=== PATIENT | female | born 1985 | race Caucasian/White ===

== ENCOUNTER 2017-03-23 11:00 | Inpatient (IN) | payer OTHER ==
--- NOTE | ~2017-03-23 | HP ---
Unit #: [id number] #: [id number] Patient: ROSY RAMIREZ [id number] [facility] [address] [place] [address] [id number] MR#: [id number] NAME: ROSY RAMIREZ ROOM: 73 Age: 31 Sex: F Admission Date: 03/23/2017 : 1985 Attending Physician: Rikki Harrell M.D. Admitting Physician: Rikki Harrell M.D. Primary Care Physician: Generic Doctor Not In System HISTORY AND PHYSICAL HISTORY OF PRESENT ILLNESS Rosy is a 31 year old admitted to [facility] because of her polysubstance abuse which includes methamphetamine and heroin. She is belligerent and a poor historian so her history is taken from her chart. PAST MEDICAL HISTORY Long history of polysubstance abuse to include meth and heroin PAST SURGICAL HISTORY Nothing reported ALLERGIES Phenergan (restless legs) SOCIAL HISTORY Smokes one pack per day. Denies alcohol. Admits to a long history of poly illicit substance abuse to include amphetamines and heroin. She does have a history of IV heroin but denies anything currently. FAMILY HISTORY Medically noncontributory. REVIEW OF SYSTEMS She does not answer all questions appropriately. There are no reports of nausea, vomiting or diarrhea. She has had no cough or increased temperature. CURRENT MEDICATIONS 1. Milk of Magnesia p.r.n. 2. Maalox p.r.n. 3. Tylenol p.r.n. PHYSICAL EXAMINATION GENERAL: Alert, well-nourished, in no apparent distress. VITAL SIGNS: Blood pressure 120/86, heart rate 72, respirations 16, temperature 98.6. WEIGHT: 170 pounds. HEIGHT: 5'4". SKIN: Warm and dry without rash or lesion. HEENT: Normocephalic. TMs not viewed. Oral and nasal passages clear. Conjunctivae clear. Pupils equal, round and reactive to light and accommodation. Extraocular movements intact. Unit #: [id number] #: [id number] Patient: ROSY RAMIREZ NECK: Supple without lymphadenopathy or thyromegaly. HEART: Regular rate and rhythm without murmur. LUNGS: Clear. ABDOMEN: Soft, nontender. : Not done. EXTREMITIES: No evidence of cyanosis, clubbing or edema. Moves all extremities without focal deficit. NEUROLOGICAL: Grossly within normal limits. Cranial Nerves: II: Visual pardo are intact. III, IV AND : Extraocular movements are intact. Pupils are equal, round and reactive to light. V: Facial sensation is grossly normal. VII: Facial movements and expression are normal. VIII: Auditory acuity grossly intact. IX, X: Uvula is midline. Phonation is normal. XI: Patient shrugs shoulders and turns head normally. XII: Tongue protrudes in the midline. Sensory and Motor Function: Sensory and motor sensation is grossly normal. Motor: moves all extremities well. Coordination: Gait is normal. Deep Tendon Reflexes: Intact. IMPRESSION Psychiatric admission RECOMMENDATIONS PSYCHIATRIC: Per psychiatrist. MEDICAL: I see no contraindications to participating in facility's activities. MEDICAL PROGNOSIS Good. MEDICAL CONDITION Stable. Dictated by... Heather Osborne P.A.-C. for Denita Stevens/luis TD: 03/24/2017 04:46 JOB #: [id number] HISTORY AND PHYSICAL Page 1 of 1 X Heather Osborne HISTORY AND PHYSICAL
--- NOTE | ~2017-03-23 | PA ---
Unit #: [id number] #: [id number] Patient: ESTEPHANIA RAMIREZ [id number] [facility] [address] [place] [address] [id number] I MR#: [id number] NAME: ESTEPHANIA RAMIREZ ROOM: P173 Age: 31 Sex: F Admission Date: 03/23/2017 : 1985 Date of Assessment: 03/24/2017 Attending Physician: Rikki Harrell M.D. Admitting Physician: Rikki Harrell M.D. Primary Care Physician: Generic Doctor Not In System PSYCHIATRIC ASSESSMENT IDENTIFYING INFORMATION The patient is a 31-year-old female admitted with a history of suicidal ideation and polysubstance dependence. INFORMANT(S) Chart, patient could not be aroused for interview. CHIEF COMPLAINT None given. HISTORY OF PRESENT ILLNESS The patient is a 31-year-old white female admitted with a history of positive suicidal ideation. The patient reported that "if I leave here I'm going to find a way to kill myself." She reports a history of abuse of methamphetamine, Suboxone, and Klonopin. She is presently homeless and has been staying at the [facility]. The patient reports she has lost custody of her children and that she has lost several loved ones to substance abuse. She has been arrested in the past on trafficking charges per her report. Attempted interview today is not possible as the patient does not arouse for attempted interview. PAST PSYCHIATRIC HISTORY There is no reported previous chemical dependence treatment. FAMILY HISTORY The patient's father and brother both of drug related causes. SOCIAL HISTORY The patient is currently homeless. She reports substance use as noted previously. She is the mother of one child whose custody has been taken from the patient. She is a smoker. MEDICAL HISTORY Noncontributory. MEDICATION HISTORY None. ALLERGIES Phenergan. MENTAL STATUS EXAM At this time, reveals the patient to be a soundly sleeping Unit #: [id number] #: [id number] Patient: ESTEPHANIA RAMIREZ female appearing her stated age. Attempts to arouse the patient are sanders unsuccessful and further interview is not possible. ASSETS AND LIABILITIES Patient's assets to be assessed. Liabilities, ongoing substance use. ADMITTING DIAGNOSES 1. Dysthymic disorder. 2. Methamphetamine use disorder. 3. Sedative/hypnotic use disorder. 4. Opioid use disorder. PSYCHIATRIC PLAN/TREATMENT GOALS The patient remains hospitalized for safety and stabilization. Routine detoxification protocol for sedative/hypnotics and opiates has been initiated and suicide precautions are in place. Patient has been placed on 72 hold after she had threatened to leave the hospital yesterday. ESTIMATED LENGTH OF STAY Five to seven days with follow up to take place through the auspices of community mental health resources. Dictated by... Rikki Harrell M.D. MICHAEL/stacey TD: 03/24/2017 15:07 JOB #: [id number] PSYCHIATRIC ASSESSMENT Page 1 of 1 X Rikki Harrell MD X PSYCHIATRIC ASSESSMENT
--- NOTE | ~2017-03-23 | PN ---
Unit #: [id number] #: [id number] Patient: ESTEPHANIA RAMIREZ [id number] [facility] [address] [place] [address] [id number] I MR#: [id number] NAME: ESTEPHANIA RAMIREZ ROOM: 73 Age: 31 Sex: F Admission Date: 03/23/2017 : 1985 Attending Physician: Rikki Harrell M.D. Admitting Physician: Rikki Harrell M.D. Primary Care Physician: Jose Doctor Not In System [facility] PROGRESS NOTES DATE 03/25/2017 DISCUSSION The patient continues to complain of severe symptoms of opioid withdrawal and appears to be in significant physical discomfort. I have encouraged her to avail herself of prescribed p.r.n.s and increase her participation once she is able to do so. Dictated by... Rikki Harrell M.D. CB/ilan TD: 03/25/2017 14:40 JOB #: [id number] [facility] PROGRESS NOTES Page 1 of 1 X Rikki Harrell MD X PROGRESS NOTE
--- NOTE | ~2017-03-23 | DS ---
Unit #: [id number] #: [id number] Patient: ESTEPHANIA RAMIREZ [id number] [facility] [address] [place] [address] [id number] I MR#: [id number] NAME: ESTEPHANIA RAMIREZ ROOM: P173 Age: 31 Sex: F Admission Date: 03/23/2017 : 1985 Discharge Date: 03/26/2017 Attending Physician: Rikki Harrell M.D. Primary Care Physician: Generic Doctor Not In System DISCHARGE SUMMARY REASON FOR ADMISSION The patient is a 31-year-old white female admitted to the [facility] unit with a history of opioid and methamphetamine abuse, as well as suicidal ideation. HOSPITAL COURSE The patient is admitted to the [facility] unit and placed in a routine detoxification protocol for opioids. Her participation in the therapeutic milieu left much to be desired and the patient angrily demanded discharge on 03/25/2017. She was placed on a 72 hour hold, as she had made suicidal ideations at the time of admission. By 03/26/2017 the patient was contrite over her previous behavior and requested discharged and was so ordered. FINAL DIAGNOSES 1. Methamphetamine use disorder. 2. Opiate use disorder. DISPOSITION ON DISCHARGE No psychotropic or other medications ordered at time of discharge. FOLLOWUP Followup will take place through the auspices of community mental health and chemical dependence treatment resources. PROGNOSIS The patient's prognosis is considered fair. Dictated by... Rikki Harrell M.D. MICHAEL/aren TD: 03/27/2017 10:10 JOB #: [id number] Unit #: [id number] #: [id number] Patient: ESTEPHANIA RAMIREZ DISCHARGE SUMMARY Page 1 of 1 X Rikki Harrell MD X DISCHARGE SUMMARY
[2017-03-24 09:57] LABS: BASOPHIL# 0.1 X10e3 (0-0.3); BASOPHIL% 0.8 % (0-2.5); EOSINOPHIL# 0.2 X10e3 (0-0.7); EOSINOPHIL% 2.5 % (0.0-7.0); HEMATOCRIT 41.8 % (35.0-45.0); HEMOGLOBIN 13.9 gm/dL (12.0-16.0); LYMPHOCYTE# 2.5 X10e3 (1.0-3.5); LYMPHOCYTE% 39.4 % (17.0-45.0); MEAN CELL VOLUME 93.1 FL (83-96); MEAN CORPUSCULAR HGB CONC 33.3 g/dL (30-36); MEAN PLATELET VOLUME 8.8 FL (6.5-11.5); MONOCYTE# 0.4 X10e3 (0-1.0); NEUTROPHIL# 3.2 X10e3 (1.5-7.1); NEUTROPHIL% 50.3 % (40-75); PLATELET COUNT 237 X10e3 (140-420); RED BLOOD COUNT 4.49 X10e (3.90-5.30); RED CELL DISTRIBUTION WIDTH 13.6 % (11.0-15.5); WHITE BLOOD COUNT 6.3 X10e3 (4.0-10.5)
[2017-03-24 09:59] LABS: DIFF IND NO
[2017-03-24 11:34] LABS: ALBUMIN SERUM 3.6 g/dL (3.5-5.0); BILIRUBIN,TOTAL 0.9 mg/dL (0.2-2.0); BUN/CREATININE RATIO 22.5; CREATININE SERUM 0.4 mg/dL (0.6-1.4); GLOM FILT RATE Estimated 139.8 mL/min (>60); POTASSIUM 4.5 mmol/L (3.5-5.1); PROTEIN TOTAL SERUM 6.1 g/dL (6.0-8.3)
== END 2017-03-26 15:10 | disposition home or self-care (01) | DRG 897 ==
LOC: P1E 13:16
PROVIDERS: Specialist
PROC: HZ2ZZZZ Detoxification Services for Substance Abuse Treatment (ICD-10-PCS; principal; 2017-03-23)
DX: F15.10 Other stimulant abuse, uncomplicated (principal); F11.10 Opioid abuse, uncomplicated; R45.851 Suicidal ideations; F13.10 Sedative, hypnotic or anxiolytic abuse, uncomplicated; F34.1 Dysthymic disorder; Z88.8 Allergy status to other drugs, medicaments and biological substances; Z59.0 Homelessness
CPT/HCPCS: 80053; 84703; 85025; 86592

== ENCOUNTER 2017-05-24 08:05 | Emergency (ER) | payer OTHER | END 2017-05-24 13:44 | disposition home or self-care (01) | LOC: SED 08:05 | DX: T40.601A Poisoning by unspecified narcotics, accidental (unintentional), initial encounter (principal); F17.200 Nicotine dependence, unspecified, uncomplicated | CPT/HCPCS: 99284 ==

== ENCOUNTER 2017-07-17 23:17 | Emergency (ER) | payer OTHER ==
[~2017-07-17] VITALS: Ht 162.6 cm; Wt 65.8 kg
== END 2017-07-18 00:30 | disposition left against medical advice (07) ==
LOC: CED 23:17
DX: F15.10 Other stimulant abuse, uncomplicated (principal)
CPT/HCPCS: 99282